=== PATIENT | male | born 1975 | race African-American/Black ===

== ENCOUNTER → 2018-01-17 | Outpatient (CLI) | payer OTHER ==
[2018-01-17 12:18] LABS: BLOOD UREA NITROGEN 16 mg/dL (8-26)
[2018-01-17 12:18] LABS: CREATININE 1.2 mg/dL (0.7-1.3); GFR 79.6
[2018-01-17] MEDS: GADOBUTROL 10 MMOL/10 ML VIAL IV (13:45)
== END | disposition home or self-care (01) ==
LOC: MRI 15:34
DX: J34.89 Other specified disorders of nose and nasal sinuses (principal); H91.91 Unspecified hearing loss, right ear
CPT/HCPCS: 36415; 70553; 82565; 84520; A9585